=== PATIENT | male | born 1955 | race Caucasian/White ===

== ENCOUNTER 2018-01-28 12:29 | Emergency (ER) | payer OTHER ==
[~2018-01-28] VITALS: Ht 167.6 cm; Wt 95.0 kg
[2018-01-28] MEDS ORDERED: EMPA1TAB PO (12:38)
[2018-01-28] MEDS ORDERED: ASPI-516 CHEW (12:38)
[2018-01-28] MEDS ORDERED: WELLTAB39 PO (12:38)
[2018-01-28] MEDS ORDERED: MULTTAB67 PO (12:38)
[2018-01-28] MEDS ORDERED: LISI-515 PO (12:38)
[2018-01-28] MEDS ORDERED: ZOLP10TA3 PO (12:38)
[2018-01-28] MEDS ORDERED: PRAV40TA2 PO (12:38)
[2018-01-28] MEDS ORDERED: FISHCAP4 PO (12:38)
[2018-01-28] MEDS ORDERED: FENO160T PO (12:38)
[2018-01-28 12:39] VITALS: BP 151/77; PULSE 80; RESP 16; TEMP 98.5; O2SAT 97
[2018-01-28 12:54] LABS: AUTOMATED NEUTROPHIL # 3.1 TH/MM3 (1.8-7.7); BASOPHIL # 0.1 TH/MM3 (0-0.2); BASOPHIL % 0.9 % (0.0-2.0); EOSINOPHIL # 0.2 TH/MM3 (0-0.4); HEMATOCRIT 47.9 % (39.0-51.0); HEMOGLOBIN 15.7 GM/DL (13.0-17.0); LYMPH % 35.3 % (9.0-44.0); LYMPHOCYTE # 2.1 TH/MM3 (1.0-4.8); MEAN CELL VOLUME 90.4 FL (80.0-100.0); MEAN CORPUSCULAR HEMOGLOBIN 29.7 PG (27.0-34.0); MEAN CORPUSCULAR HGB CONC 32.8 % (32.0-36.0); MEAN PLATELET VOLUME 10.1 FL (7.0-11.0); MONO % 7.3 % (0.0-8.0); MONOCYTE # 0.4 TH/MM3 (0-0.9); NEUT % 52.5 % (16.0-70.0); PLATELET COUNT 180 TH/MM3 (150-450); RED BLOOD COUNT 5.29 MIL/MM3 (4.50-5.90); RED CELL DISTRIBUTION WIDTH 14.5 % (11.6-17.2); WHITE BLOOD COUNT 5.8 TH/MM3 (4.0-11.0)
[2018-01-28 13:10] LABS: ALBUMIN 4.1 GM/DL (3.4-5.0); ALT (GPT) 42 U/L (12-78); AST (GOT) 23 U/L (15-37); BICARBONATE 25.6 MEQ/L (21.0-32.0); BLOOD UREA NITROGEN 26 MG/DL (7-18); CALCIUM 9.4 MG/DL (8.5-10.1); CHLORIDE 109 MEQ/L (98-107); CREATININE 1.45 MG/DL (0.60-1.30); GLOMERULAR FILTRATION RATE 49 ML/MIN (>89); GLUCOSE,RANDOM 129 MG/DL (74-106); SODIUM (NA) 143 MEQ/L (136-145)
[2018-01-28 13:12] LABS: ALKALINE PHOSPHATASE 48 U/L (45-117); TOTAL BILIRUBIN ADULT 0.3 MG/DL (0.2-1.0); TOTAL PROTEIN 7.1 GM/DL (6.4-8.2)
[2018-01-28 13:15] LABS: ACETAMINOPHEN LESS THAN 2.0 MCG/ML (10.0-30.0)
--- NOTE | 2018-01-28 17:54 | PD ---
HPI Chief Complaint: Psychiatric Symptoms Time Seen by Provider: 16:56 Travel History International Travel<30 days: No Contact w/Intl Traveler<30days: No Traveled to known affect area: No History of Present Illness HPI 62-year-old male brought in under the [place] act with suicidal ideation. Patient recently lost his job 40 years. Patient also has recent issues with his spouse. Patient is actively suicidal. He has no specific plan. He denies any acute medical issues. Patient is type I diabetic and takes cholesterol medication and hypertension medication. He has no known drug allergies per [facility] Past Medical History Anxiety: Yes Diabetes: Yes (PREDIABETIC) Hypertension: Yes Kidney Stones: Yes Medical other: Yes (HYPERLIPIDEMIA) Immunizations Current: Yes Tetanus Vaccination: > 5 Years Influenza Vaccination: Yes (2016) ?: Not Past Surgical History Eye Surgery: Yes (DETACHED RETINAS BILATERALLY) Genitourinary Surgery: Yes (KIDNEY STONES) Tonsillectomy: Yes Social History Alcohol Use: Yes (SOCIALLY ) Tobacco Use: No Substance Use: No (PT DENIES) Allergies-Medications (Allergen,Severity, Reaction): Coded Allergies: No Known Allergies (Unverified , 01/28/18) Reported Meds & Prescriptions Reported Meds & Active Scripts Active Reported Fish Oil + D3 (Fish Oil-Cholecalciferol) 1,200-1,000 Mg-Unit Cap 1 Cap PO DAILY Multiple Vitamin 1 Tab 1 Tab PO DAILY Jardiance (Empagliflozin) 10 Mg Tab 10 Mg PO DAILY Zolpidem (Zolpidem Tartrate) 10 Mg Tab 10 Mg PO HS PRN Pravastatin 40 Mg Tab 40 Mg PO DAILY Wellbutrin Xl 24 HR (Bupropion HCl) 300 Mg Tab 300 Mg PO DAILY Fenofibrate 160 Mg Tab 160 Mg PO DAILY Lisinopril 20 Mg Tab 20 Mg PO DAILY Aspirin 81 Mg Chew 81 Mg CHEW ONCE Review of Systems Except as stated in HPI: all other systems reviewed are Neg General / Constitutional: No: Fever Eyes: No: Visual changes HENT: No: Headaches Cardiovascular: No: Chest Pain or Discomfort Respiratory: No: Shortness of Breath Gastrointestinal: No: Abdominal Pain Genitourinary: No: Dysuria Musculoskeletal: No: Pain Skin: No Rash Neurologic: No: Weakness Psychiatric: Positive: Suicidal Ideations, No: Depression, Substance Abuse, Homicidal Ideation Endocrine: No: Polydipsia Hematologic/Lymphatic: No: Easy Bruising Physical Exam Narrative GENERAL: Well-groomed male in no acute distress. SKIN: Warm and dry. Normal color. Normal turgor. No signs of trauma. HEAD: Atraumatic. Normocephalic. EYES: Pupils equal and round. No scleral icterus. No injection or drainage. ENT: No nasal bleeding or discharge. Mucous membranes pink and moist. Pharynx is clear. Airway is patent. NECK: Trachea midline. Supple and nontender. CARDIOVASCULAR: Regular rate and rhythm. RESPIRATORY: No accessory muscle use. Clear to auscultation. Breath sounds equal bilaterally. GASTROINTESTINAL: Abdomen soft, non-tender, nondistended. Hepatic and splenic margins not palpable. MUSCULOSKELETAL: Extremities without clubbing, cyanosis, or edema. No obvious deformities. NEUROLOGICAL: Awake and alert. No obvious cranial nerve deficits. Motor grossly within normal limits. Five out of 5 muscle strength in the arms and legs. Normal speech. PSYCHIATRIC: Appropriate mood and affect; insight and judgment normal. Data Data Last Documented VS Vital Signs Date Time Temp Pulse Resp B/P (MAP) Pulse Ox O2 Delivery O2 Flow Rate FiO2 01/28/18 12:39 98.5 80 16 151/77 (101) 97 Orders Orders Complete Blood Count With Diff (01/28/18 12:41) Comprehensive Metabolic Panel (01/28/18 12:41) Psych Screen (01/28/18 12:41) Blood Glucose (01/28/18 12:41) Diet Regular Basic (01/28/18 Lunch) Drug Screen, Random Urine (01/28/18 12:41) Alcohol (Ethanol) (01/28/18 12:41) Tylenol (Acetaminophen) (01/28/18 12:41) Salicylates (Aspirin) (01/28/18 12:41) Diet Regular Basic (01/28/18 Dinner) Labs Laboratory Tests Test 01/28/18 12:41 01/28/18 15:30 White Blood Count 5.8 TH/MM3 Red Blood Count 5.29 MIL/MM3 Hemoglobin 15.7 GM/DL Hematocrit 47.9 % Mean Corpuscular Volume 90.4 FL Mean Corpuscular Hemoglobin 29.7 PG Mean Corpuscular Hemoglobin Concent 32.8 % Red Cell Distribution Width 14.5 % Platelet Count 180 TH/MM3 Mean Platelet Volume 10.1 FL Neutrophils (%) (Auto) 52.5 % Lymphocytes (%) (Auto) 35.3 % Monocytes (%) (Auto) 7.3 % Eosinophils (%) (Auto) 4.0 % Basophils (%) (Auto) 0.9 % Neutrophils # (Auto) 3.1 TH/MM3 Lymphocytes # (Auto) 2.1 TH/MM3 Monocytes # (Auto) 0.4 TH/MM3 Eosinophils # (Auto) 0.2 TH/MM3 Basophils # (Auto) 0.1 TH/MM3 CBC Comment DIFF FINAL Differential Comment Blood Urea Nitrogen 26 MG/DL Creatinine 1.45 MG/DL Random Glucose 129 MG/DL Total Protein 7.1 GM/DL Albumin 4.1 GM/DL Calcium Level 9.4 MG/DL Alkaline Phosphatase 48 U/L Aspartate Amino Transf (AST/SGOT) 23 U/L Alanine Aminotransferase (ALT/SGPT) 42 U/L Total Bilirubin 0.3 MG/DL Sodium Level 143 MEQ/L Potassium Level 4.4 MEQ/L Chloride Level 109 MEQ/L Carbon Dioxide Level 25.6 MEQ/L Anion Gap 8 MEQ/L Estimat Glomerular Filtration Rate 49 ML/MIN Salicylates Level LESS THAN 1.7 MG/DL Acetaminophen Level LESS THAN 2.0 MCG/ML Ethyl Alcohol Level LESS THAN 3 MG/DL Urine Opiates Screen NEG Urine Barbiturates Screen NEG Urine Amphetamines Screen NEG Urine Benzodiazepines Screen NEG Urine Cocaine Screen NEG Urine Cannabinoids Screen NEG MDM Medical Decision Making Medical Screen Exam Complete: Yes Emergency Medical Condition: Yes Differential Diagnosis Bess act. Suicidal ideation. Depression. Narrative Course Psychiatric labs ordered per protocol. Patient is medically cleared for psychiatric evaluation. Psych screen is ordered. Condition: Stable Ean Medrano January 28, 2018 17:54
[2018-01-28 18:46] VITALS: BP 148/85; PULSE 74; RESP 18; TEMP 98.6; O2SAT 97
[2018-01-28 23:24] VITALS: BP 129/78; PULSE 69; RESP 20; TEMP 98.6; O2SAT 97
[2018-01-28] MEDS ORDERED: ZOLPIDEM TARTRATE 5 MG TAB PO ONE (23:30)
--- NOTE | 2018-01-29 09:21 | PD ---
Physical Exam Time Seen by Provider: 09:[address] Gu has evaluated patient, lifted Bess act and cleared the patient for discharge. Data Data Last Documented VS Vital Signs Date Time Temp Pulse Resp B/P (MAP) Pulse Ox O2 Delivery O2 Flow Rate FiO2 01/28/18 23:24 98.6 69 20 129/78 (95) 97 Room Air Orders Orders Complete Blood Count With Diff (01/28/18 12:41) Comprehensive Metabolic Panel (01/28/18 12:41) Psych Screen (01/28/18 12:41) Blood Glucose (01/28/18 12:41) Diet Regular Basic (01/28/18 Lunch) Drug Screen, Random Urine (01/28/18 12:41) Alcohol (Ethanol) (01/28/18 12:41) Tylenol (Acetaminophen) (01/28/18 12:41) Salicylates (Aspirin) (01/28/18 12:41) Diet Regular Basic (01/28/18 Dinner) Diet Diabetic (01/29/18 Breakfast) Zolpidem (Ambien) (01/28/18 23:30) Labs Laboratory Tests Test 01/28/18 12:41 01/28/18 15:30 White Blood Count 5.8 TH/MM3 Red Blood Count 5.29 MIL/MM3 Hemoglobin 15.7 GM/DL Hematocrit 47.9 % Mean Corpuscular Volume 90.4 FL Mean Corpuscular Hemoglobin 29.7 PG Mean Corpuscular Hemoglobin Concent 32.8 % Red Cell Distribution Width 14.5 % Platelet Count 180 TH/MM3 Mean Platelet Volume 10.1 FL Neutrophils (%) (Auto) 52.5 % Lymphocytes (%) (Auto) 35.3 % Monocytes (%) (Auto) 7.3 % Eosinophils (%) (Auto) 4.0 % Basophils (%) (Auto) 0.9 % Neutrophils # (Auto) 3.1 TH/MM3 Lymphocytes # (Auto) 2.1 TH/MM3 Monocytes # (Auto) 0.4 TH/MM3 Eosinophils # (Auto) 0.2 TH/MM3 Basophils # (Auto) 0.1 TH/MM3 CBC Comment DIFF FINAL Differential Comment Blood Urea Nitrogen 26 MG/DL Creatinine 1.45 MG/DL Random Glucose 129 MG/DL Total Protein 7.1 GM/DL Albumin 4.1 GM/DL Calcium Level 9.4 MG/DL Alkaline Phosphatase 48 U/L Aspartate Amino Transf (AST/SGOT) 23 U/L Alanine Aminotransferase (ALT/SGPT) 42 U/L Total Bilirubin 0.3 MG/DL Sodium Level 143 MEQ/L Potassium Level 4.4 MEQ/L Chloride Level 109 MEQ/L Carbon Dioxide Level 25.6 MEQ/L Anion Gap 8 MEQ/L Estimat Glomerular Filtration Rate 49 ML/MIN Salicylates Level LESS THAN 1.7 MG/DL Acetaminophen Level LESS THAN 2.0 MCG/ML Ethyl Alcohol Level LESS THAN 3 MG/DL Urine Opiates Screen NEG Urine Barbiturates Screen NEG Urine Amphetamines Screen NEG Urine Benzodiazepines Screen NEG Urine Cocaine Screen NEG Urine Cannabinoids Screen NEG MDM Supervised Visit with ANCELMO: No Narrative Course Dr. Gu has evaluated patient, lifted Bess tammy and cleared the patient for discharge. Patient contracts safety. Denies suicidal or homicidal ideations. Patient will be provided community resource packet to [facility] for follow-up. Has friends and family for support. Patient was medically cleared by alternate provider prior to psych screening. Patient has been evaluated by psychiatry and and is now cleared for discharge. Diagnosis Primary Impression: Adjustment disorder with depressed mood Referrals: Riccardo Mills MD (PCP) [facility] (Out patient) [facility] Primary Care Physician Psychiatrist Tye [facility] Patient Instructions: General Instructions Departure Forms: Tests/Procedures Additional Instruction: Contract safety to your self and others Follow-up with psychiatry Follow-up with primary care provider Follow-up with Akash Ansari Return to the emergency department immediately with worsening of symptoms Med/Other Pt SpecificInfo: No Change to Meds, No Meds Exist/No RX given Disposition: 01 DISCHARGE HOME Condition: Stable Leeanne Qureshi [employer]IC DEVELOPER January 29, 2018 09:21
--- NOTE | 2018-01-29 15:02 | PD.PSY.CON ---
Provisional Diagnosis Admission Date Orland I. Adjustment disorder with depressed mood, major depressive disorder, recurrent, moderate without psychosis Orland II. Deferred Orland III. Diabetes, hypertension Orland IV. Recent conflict with Orland V. 55 History of Present Illness Service Psychiatry Consult Requested By ER Reason for Consult SI Primary Care Physician Riccardo Mills MD HPI The patient was seen this morning at 8:30 AM The patient is a 62-year-old man, domiciled with his in [place], unemployed at the moment, with psychiatric history of depression, no previous psychiatric hospitalizations, no previous suicide attempts, the patient is on Wellbutrin 75 mg twice daily, Ambien 10 mg at bedtime, prescribed by PCP, medical history diabetes and hypertension, who brought in under the Bess act with suicidal ideation. Patient recently lost his job 40 years. Patient also has recent issues with his spouse. Patient is actively suicidal. He has no specific plan. He denies any acute medical issues. Patient is type I diabetic and takes cholesterol medication and hypertension medication. On psychiatric evaluation today patient is calm, cooperative, patient states that yesterday he was quite upset with his he wanted to make a point by saying that he wanted to kill himself. However, the patient clarifies that he does not want to , that he has too many reasons to live for. Patient reports that he has been having conflicts with his "because she discovered that I was checking some pornography in my phone and we have been for about a week now". Yesterday, he says, they were talking, they were not coming to an agreement and he verbalized that he "will be going to not come back". At this moment the patient denies symptomatology of depression, he denies anhedonia, he denies hopelessness, he denies helplessness, he denies suicidal enemas ideation. The patient admits that he just wanted to manipulate his . I spoke with his , Tila Anderson, , who says that she does not actually think that the patient was to kill himself, but yesterday she was very frustrated and she did not know what to do. She feels safe with discharging the patient back home. She says that she is in her best interest to clarifies and arrange things with the patient. She will come personally to mixing picker tender the patient to the ER. Review of Systems Constitutional: DENIES: Diaphoretic episodes, Fatigue, Fever, Weight gain, Weight loss, Chills, Dizziness, Change in appetite, Night Sweats Endocrine: DENIES: Heat/cold intolerance, Polydipsia, Polyuria, Polyphagia Eyes: DENIES: Blurred vision, Diplopia, Eye inflammation, Eye pain, Vision loss , Photosensitivity, Double Vision Ears, nose, mouth, throat: DENIES: Tinnitus, Hearing loss, Vertigo, Nasal discharge, Oral lesions, Throat pain, Hoarseness, Ear Pain, Running Nose, Epistaxis, Sinus Pain, Toothache, Odynophagia Respiratory: DENIES: Apneas, Cough, Snoring, Wheezing, Hemoptysis, Sputum production, Shortness of breath Cardiovascular: DENIES: Chest pain, Palpitations, Syncope, Dyspnea on Exertion , PND, Lower Extremity Edema, Orthopnea, Claudication Gastrointestinal: DENIES: Abdominal pain, Black stools, Bloody stools, Constipation, Diarrhea, Nausea, Vomiting, Difficulty Swallowing, Anorexia Genitourinary: DENIES: Sexual dysfunction, Urinary frequency, Urinary incontinence, Urgency, Hematuria, Dysuria, Nocturia, Penile Discharge, Testicular Pain, Testicular Swelling Musculoskeletal: DENIES: Joint pain, Muscle aches, Stiffness, Joint Swelling, Back pain, Neck pain Integumentary: DENIES: Abnormal pigmentation, Nail changes, Pruritus, Rash Hematologic/lymphatic: DENIES: Bruising, Lymphadenopathy Immunologic/allergic: DENIES: Eczema, Urticaria Neurologic: DENIES: Abnormal gait, Headache, Localized weakness, Paresthesias, Seizures, Speech Problems, Tremor, Poor Balance Psychiatric: DENIES: Anxiety, Confusion, Mood changes, Depression, Hallucinations, Agitation, Suicidal Ideation, Homicidal Ideation, Delusions Past Family Social History Coded Allergies: No Known Allergies (Unverified , 01/28/18) Reported Medications Fish Oil-Cholecalciferol (Fish Oil + D3) 1,200-1,000 Mg-Unit Cap, 1 CAP PO DAILY for Nutritional Supplement, #30 CAP 0 Refills 01/28/18 Multiple Vitamin (Multiple Vitamin) 1 Tab, 1 TAB PO DAILY for Nutritional Supplement, TAB 0 Refills 01/28/18 Empagliflozin (Jardiance) 10 Mg Tab, 10 MG PO DAILY for Blood Sugar Management, #30 TAB 0 Refills 01/28/18 Zolpidem (Zolpidem) 10 Mg Tab, 10 MG PO HS Y for INSOMNIA, TAB 0 Refills 01/28/18 Pravastatin (Pravastatin) 40 Mg Tab, 40 MG PO DAILY for Cholesterol Management, #30 TAB 0 Refills 01/28/18 Bupropion HCl ER 24 HR (Wellbutrin Xl 24 HR) 300 Mg Tab, 300 MG PO DAILY for Control Depression, TAB 0 Refills 01/28/18 Fenofibrate (Fenofibrate) 160 Mg Tab, 160 MG PO DAILY, #30 TAB 0 Refills 01/28/18 Lisinopril (Lisinopril) 20 Mg Tab, 20 MG PO DAILY, #30 TAB 0 Refills 01/28/18 Aspirin (Aspirin) 81 Mg Chew, 81 MG CHEW ONCE, #1 TAB 0 Refills 01/28/18 Family Psych History No family psychiatric history Social History Patient was born and raised in [place], he losing [place] with his , no kids, unemployed at the moment, he has a degree in [employer] engineering Patient's Strengths (min. 2) No previous psychiatric hospitalizations, no alcohol or drug use Physical Exam No tremors, no EPS, no psychomotor agitation or retardation Vital Signs Vital Signs Date Time Temp Pulse Resp B/P (MAP) Pulse Ox O2 Delivery O2 Flow Rate FiO2 01/29/18 10:36 01/28/18 23:24 98.6 69 20 97 Room Air Lab Results Test 01/28/18 15:30 Urine Opiates Screen NEG Urine Barbiturates Screen NEG Urine Amphetamines Screen NEG Urine Benzodiazepines Screen NEG Urine Cocaine Screen NEG Urine Cannabinoids Screen NEG Mental Status Examination Appearance: Appropriate Consciousness: Alert Orientation: x4 Motor Activity: Normal gait Speech: Unremarkable Language: Adequate Fund of Knowledge: Adequate Attention and Concentration: Adequate Memory: Unremarkable Mood: Appropriate Affect: Appropriate Thought Process & Associations: Intact Thought Content: Appropriate Hallucination Type: None Delusion Type: None Suicidal Ideation: No Suicidal Plan: No Suicidal Intention: No Homicidal Ideation: No Homicidal Plan: No Homicidal Intention: No Insight: Adequate Judgment: Adequate Assessment & Plan Problem List: (1) Adjustment disorder with depressed mood ICD Codes: F43.21 - Adjustment disorder with depressed mood Assessment & Plan: At the moment on my psychiatric evaluation the patient is calm, cooperative, logical, coherent and relevant. The patient reports good mood, he denies symptomatology of depression, denies anxiety, mala or psychosis. The patient denies suicidal and homicidal ideation, he denies visual and auditory hallucinations. The patient has history of depression, but no previous psychiatric hospitalizations, no previous suicidal attempts, he is in Wellbutrin 75 mg twice daily, with adequate response and no side effects. His recent suicidal statement to his was verbalized in the heat of an argument, the patient admits he was trying to manipulate and control his , but he does not have any intentions to commit suicide. The patient is future oriented, with clear identifiable protective factor for suicidality, his is actually in agreement that the patient does not meet criteria for involuntary psychiatric admission. Brief supportive psychotherapy was provided. Continue current psychotropic. Bess act will be lifted Assessment & Plan Estimated LOS: days Gabriel Kaufman MD January 29, 2018 15:02
== END 2018-01-29 10:50 | disposition home or self-care (01) ==
LOC: NEPJ 12:29
DX: F43.21 Adjustment disorder with depressed mood (principal); F33.9 Major depressive disorder, recurrent, unspecified; E11.9 Type 2 diabetes mellitus without complications; I10 Essential (primary) hypertension; E78.5 Hyperlipidemia, unspecified; Z79.84 Long term (current) use of oral hypoglycemic drugs; Z79.899 Other long term (current) drug therapy; Z87.442 Personal history of urinary calculi; Z86.59 Personal history of other mental and behavioral disorders
CPT/HCPCS: 80053; 80307; 85025; 99283